=== PATIENT | male | born 2000 | race Two or more races ===

== ENCOUNTER 2020-09-25 19:15 | Emergency (ER) | payer MEDICAID, OTHER ==
[~2020-09-25] VITALS: Ht 165.1 cm; Wt 59.0 kg
[2020-09-25 20:01] VITALS: BP 115/73
== END 2020-09-25 23:50 | disposition left against medical advice (07) ==
LOC: ER 19:15
DX: R10.9 Unspecified abdominal pain (principal); Z53.21 Procedure and treatment not carried out due to patient leaving prior to being seen by health care provider
CPT/HCPCS: 93005